=== PATIENT | male | born 1935 | race Caucasian/White ===

== ENCOUNTER 2025-05-19 18:25 | Inpatient (IN) | payer MEDICARE, SELFPAY ==
--- OUTSIDE RECORDS SUMMARY | 2023-06-28 05:42 | XMS_ITS | Continuity of Care Document ---
Author Organization JENNA Larson Address [address] [place] [address] Phone Care Team Providers Care Molding Engineer Name Role Phone RN, RN Unavailable Unavailable Allergies, Adverse Reactions, Alerts Substance Reaction Status Criticality No Known Allergies Active No Inform ation Medications Medication Instructions Dosage Effective Dates (start - stop) Status Comments Lipitor 10 mg tablet take 1 tablet by or al route every day 10 MG - Active aspirin 81 mg chewable tablet chew 1 tablet by oral route every day 81 MG - Active Xarelto 20 mg tablet take 1 tablet by or al route every day with the evening meal 20 MG - Active Tylenol 325 mg capsule take 1 capsule by oral route 3 times every day for 1 month 1 capsule - Active Procedures Procedure Date No Show Visit Fee Inject, Spine, Lumb/sacr, Epi/subarc w/ img Guid Inject, Spine, Lumb/sacr, Epi/subarc w/ img Guid Verified No Separate Anesthesia 023 New Pt Eval Moderate Advance Directives Directive Yes / No Effective Date File Name No Information Encounters Encounter Description Practice Location Reason(s) For Visit Diagnoses Date Provider Providers Copied on Encounter JENNA Larson, [address], [place], [place], [id number], [place] tel:[phone] [facility] No Information JUDIT SPAIN. [address], [place], [place], [id number], [place]. tel:[phone] JENNA Larson, [address], [place], [place], [id number], [place] tel:[phone] [facility] No Information Therese Escobar. [address], [place], [address], [place]. tel:[phone] Referring Provider: REFERRAL FADI, DAYANARA. [facility], [facility], [address], [place], [place], [id number], [place] tel:[phone] [facility] No Information Miles Velazquez. [address], [place], [address], [place]. tel:[phone] Referring Provider: Marcus Aquino, [address], [place], [address]. tel:[phone] [facility], [address], [place], [address], [place] tel:[phone] [facility] back pain (chief complaint) Radiculopathy , lumbar regionRadicul opathy, lumbar region [facility]. [address], [place], [place], [id number], [place]. tel:[phone] Referring Provider: Marcus Aquino, [address], [place], [address]. tel:[phone] [facility], [facility], [address], [place], [place], [id number], [place] tel:[phone] [facility] No Information Miles Velazquez. [address], [place], [address], [place]. tel:[phone] Referring Provider: Marcus Aquino [address], [place], [address]. tel:[phone] New Pt Eval [facility], 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 [address], [place], [id number], [place]. tel:[phone] Referring Provider: Fernando Paz, [address], [place], [address] . tel:[phone] Family History Family Member Type Diagnosis Age At Onset No Information Payers Payer name Insurance type Covered alliance party ID Subhash varghese(s) Medicare Part B [id number] Blue Cross Medicare 16 [id number] Social History Type Description Quantity Date Captured Comments Alcohol Use Details Unknown Caffeine Use Details Unknown Tobacco Use Status No Information Smoking Status No Information Sex Male Chief Complaint And Reason For Visit No Information Reason For Referral Reason For Referral No Information History Of Present Illness Encounter Date Complaint History Of Prese nt Illness back pain Location of pain is lower back. back pain Location of pain is lower back. Pain is radiated to the bilateral legs. The patient describes the pain as shooting. Context: hard fall. Symptoms are aggravated by bending and twisting. Symptoms are relieved by ice and massage. Functional Status Date Functional Assessmen t No Information Instructions Date Instruction Additional Infor nissa -Follow up in clinic to discuss results from today's injection Related to Radiculopathy, lumbar region -Order lumbar MRI an d 4 view X-rays at [facility] in [place]-Request records from [facility]-Order lumbar epidural steroid injection. Once approved, can schedule appointment. If lumbar epidural steroid injection is not possible or doesn't provide relief, proceed with radiofrequency ablation-Follow up with PCP regarding holding blood thinners for injections-Follow up with YENNI after injection to reevaluate plan of care Related to Radiculopathy, lumbar region Giving encouragement to exercise Related to Body mass index [BMI] 27.0-27.9, adult Assessments Type Assessment Date No Information Patient Care Teams Name Effective Dates (start - stop) Status Members No Information
--- NOTE | ~2025-05-19 | CT_ITS ---
EXAMINATION: CTA chest PE protocol DATE: 05/19/2025 20:32 CDT INDICATION: Chest pain and shortness of breath TECHNIQUE: Computed tomographic angiography (CTA) of the chest was performed with 100 mL Omnipaque-350 intravenous contrast. The dose-length product was 355.18 mGy-cm. Maximum intensity projection 3D-reconstructions of the aorta and other arteries were constructed by the technologist on a separate workstation. COMPARISON: Chest x-ray dated 05/19/2025. FINDINGS: Study is technically adequate without evidence for pulmonary embolism. No significant thoracic lymphadenopathy. Heart size normal. No significant pleural or pericardial effusion. There is a 2.9 cm cyst of the right hepatic lobe. There is airspace disease of the lower lobes bilaterally, left greater than right, consistent with pneumonia. Consider aspiration in the appropriate clinical setting. There is diffuse idiopathic skeletal hyperostosis (DISH) of the thoracic spine. There is a right shoulder arthroplasty. IMPRESSION: 1. Bilateral lower lobe airspace disease, compatible with pneumonia. Consider aspiration. Reviewed, dictated and finalized at location O. IMPRESSION: 1. Bilateral lower lobe airspace disease, compatible with pneumonia. Consider a spiration.
--- NOTE | ~2025-05-19 | XR_ITS ---
XR chest 2V 05/19/2025 19:11 Indication: Dyspnea Procedure: 2 view chest Comparison: No prior studies for comparison. Findings: There is left lower lobe airspace disease which may represent atelectasis or developing pneumonia. Heart size normal. Right lung clear. There are healed bilateral rib fractures. No significant effusion or pneumothorax. Impression: 1: Left lower lobe airspace disease may represent atelectasis and/or pneumonia. Reviewed, dictated and finalized at location O. Impression: 1: Left lower lobe airspace disease may represent atelectasis and/or pneumonia.
--- NOTE | ~2025-05-19 | XR_ITS ---
EXAMINATION: XR chest ET placement DATE: 05/20/2025 04:21 INDICATION: Intubation TECHNIQUE: frontal view of the chest was obtained. COMPARISON: Chest radiograph dated 05/20/25 FINDINGS: Endotracheal tube tip 3.8 cm above the naina. Interval increase in airspace opacities in the bilateral mid and lower lung zones. No pleural effusion or pneumothorax. The cardiomediastinal silhouette is normal. Severe left glenohumeral osteoarthritis. Right shoulder arthroplasty. IMPRESSION: 1. Increasing opacities in the bilateral mid and lower lung zones which could represent pulmonary edema or pneumonia. Reviewed, dictated and finalized at location A. IMPRESSION: 1. Increasing opacities in the bilateral mid and lower lung zones which could r epresent pulmonary edema or pneumonia.
--- NOTE | ~2025-05-19 | XR_ITS ---
Examination: XR chest 1V portable Clinical History: increased o2 demands Comparison: 1 day prior Technique: Portable AP Findings: Heart size normal. Worsening bibasilar opacities. No acute bony abnormality. IMPRESSION: 1. Worsening bibasilar atelectasis and/or airspace disease. Reviewed, dictated and finalized at location R.
--- NOTE | 2025-05-19 18:39 | ED.GENADULT ---
HPI - General Adult General Chief complaint: Shortness of Breath/Dyspnea <Nidia Bush December, CORPORATE RECYCLING MANAGER - Last Filed: 05/19/25 18:51> Stated complaint: SOB <Nidia Bush December, CORPORATE RECYCLING MANAGER - Last Filed: 05/19/25 18:51> Time Seen by Provider: 05/19/25 18:40 <Nidia Bush December, CORPORATE RECYCLING MANAGER - Last Filed: 05/19/25 18:51> Focused HPI: Wilfredo Garcia is an 89 y/o male with fever 101.6, SOB and he drove 8 hours today from out of town to be [facility] family. Patient has a hx of PE and is on Eliquis. He states yesterday he felt fine but once he got here he cannot catch his breath. He states he typically gets SOB on exertion and sits down and feels better but today he isn't feeling better with rest. He also states that he is having chest pain mid sternal that started with the chest pain. Denies hx of HI/ no previous cardiac surgery - lives in [place] and a lot of medical records in [place]. GENERAL: Well-appearing, well-nourished, and in no acute distress. HEAD: Normocephalic, atraumatic. CHEST: Clear to auscultation. ?No respiratory distress. HEART: Regular rate and rhythm.? NEURO: ?Alert and oriented x3. Patient screened in triage and initial orders placed.? ?Additional care and disposition to be based upon?diagnostic testing and treatment. <Nidia Bush December, CORPORATE RECYCLING MANAGER - Last Filed: 05/19/25 18:51> History of Present Illness HPI narrative: Agree with the HPI <Dallas Sequeira MD - Last Filed: 05/19/25 22:40> Related Data Allergies/adverse reactions: Allergies Allergy/AdvReac Type Severity Reaction Status Date / Time No Known Allergies Allergy Verified 05/19/25 18:53 <Nidia Bush December, CORPORATE RECYCLING MANAGER - Last Filed: 05/19/25 18:51> Review of Systems Review of Systems: Gen.: Denies fevers or chills Eyes: Denies eye pain or visual change ENT: Denies congestion Respiratory: As per HPI CV: As per HPI GI: Denies abdominal pain nausea, emesis or diarrhea denies burning, urgency, frequency or hematuria Musculoskeletal: Denies back pain or muscle pain Neuro: Denies numbness, tingling, weakness or focal weakness Skin: Denies rash Except as documented, all other systems reviewed and negative <Dallas Sequeira MD - Last Filed: 05/19/25 22:40> Exam Narrative: APPEARANCE: No acute distress, nontoxic, resting in bed EYES: EOMI HEENT: Normocephalic, atraumatic, OMM RESPIRATORY: No respiratory distress Clear to auscultation bilaterally with no rhonchi wheezing or rales. CARDIOVASCULAR: Tachycardic with regular rhythm without murmurs rubs or gallops. ABDOMINAL: Soft, nontender, nondistended, no rebound or guarding MUSCULOSKELETAl: Moves all extremities. No clubbing, cyanosis or edema. NEURO: Awake and alert. Following commands, speech normal, no focal deficits SKIN:: Warm, dry. No rashes lesions or abrasions PSYCHIATRIC: Normal affect/mood, <Dallas Sequeira MD - Last Filed: 05/19/25 22:40> Course Vital Signs Vital signs: Vital Signs Temperature 98.5 F 05/19/25 18:42 Pulse Rate 128 H 05/19/25 18:42 Respiratory Rate 18 05/19/25 18:42 Blood Pressure 97/58 L 05/19/25 18:42 Pulse Oximetry 96 05/19/25 18:42 Oxygen Delivery Room Air 05/19/25 18:42 Temperature 98.4 F 05/19/25 21:42 Pulse Rate 108 H 05/19/25 21:42 Respiratory Rate 18 05/19/25 21:42 Blood Pressure 112/69 05/19/25 21:42 Pulse Oximetry 94 05/19/25 21:42 Oxygen Delivery Room Air 05/19/25 18:42 <Nidia Palma, CORPORATE RECYCLING MANAGER - Last Filed: 05/19/25 18:51> Vital Signs Temperature 98.5 F 05/19/25 18:42 Pulse Rate 128 H 05/19/25 18:42 Respiratory Rate 18 05/19/25 18:42 Blood Pressure 97/58 L 05/19/25 18:42 Pulse Oximetry 96 05/19/25 18:42 Oxygen Delivery Room Air 05/19/25 18:42 Temperature 98.4 F 05/19/25 21:42 Pulse Rate 108 H 05/19/25 21:42 Respiratory Rate 18 05/19/25 21:42 Blood Pressure 112/69 05/19/25 21:42 Pulse Oximetry 94 05/19/25 21:42 Oxygen Delivery Room Air 05/19/25 18:42 <Dallas Sequeira MD - Last Filed: 05/19/25 22:40> Medical Decision Making MDM Narrative Medical decision making narrative: 89-year-old male who presented to the ED for chest pain and shortness of breath. On initial evaluation, patient was in acute distress, afebrile tachycardic to the 120s. Heart and lungs were clear. CBC without significant abnormalities. BNP elevated at 1500. COVID/flu/RSV negative. Troponin elevated at 0.036. CTA chest was obtained which showed no evidence of PEs but did reveal bilateral lower lobe pneumonia. Patient will be given Rocephin and doxycycline. He will require admission for NSTEMI. I discussed case with hospitalist who will admit the patient, does request Cardiology consult regarding possible heparin drip in the setting of Eliquis use. I discussed the case with Dr. Stein, cardiology, recommends holding Eliquis and heparin bolus there is a change in clinical status. I relayed this information to Dr. Hartman, hospitalist. Patient and family are agreeable to this plan. <Dallas Sequeira MD - Last Filed: 05/19/25 22:40> Differential Diagnosis Differential Diagnosis: ACS, PE, failure of outpatient treatment, costochondritis pneumonia viral syndrome <Dallas Sequeira MD - Last Filed: 05/19/25 22:40> Medical Records Medical records reviewed: Yes I reviewed the external patient's medical records. <Dallas Sequeira MD - Last Filed: 05/19/25 22:40> Vital Signs Vital Signs: Vital Signs Temperature 98.5 F 05/19/25 18:42 Pulse Rate 128 H 05/19/25 18:42 Respiratory Rate 18 05/19/25 18:42 Blood Pressure 97/58 L 05/19/25 18:42 Pulse Oximetry 96 05/19/25 18:42 Oxygen Delivery Room Air 05/19/25 18:42 Temperature 98.4 F 05/19/25 21:42 Pulse Rate 108 H 05/19/25 21:42 Respiratory Rate 18 05/19/25 21:42 Blood Pressure 112/69 05/19/25 21:42 Pulse Oximetry 94 05/19/25 21:42 Oxygen Delivery Room Air 05/19/25 18:42 <Nidia Palma APRN - Last Filed: 05/19/25 18:51> Vital Signs Temperature 98.5 F 05/19/25 18:42 Pulse Rate 128 H 05/19/25 18:42 Respiratory Rate 18 05/19/25 18:42 Blood Pressure 97/58 L 05/19/25 18:42 Pulse Oximetry 96 05/19/25 18:42 Oxygen Delivery Room Air 05/19/25 18:42 Temperature 98.4 F 05/19/25 21:42 Pulse Rate 108 H 05/19/25 21:42 Respiratory Rate 18 05/19/25 21:42 Blood Pressure 112/69 05/19/25 21:42 Pulse Oximetry 94 05/19/25 21:42 Oxygen Delivery Room Air 05/19/25 18:42 <Dallas Sequeira MD - Last Filed: 05/19/25 22:40> Lab Data Lab results reviewed: Yes I reviewed the patient's lab results. <Dallas Sequeira MD - Last Filed: 05/19/25 22:40> Result diagrams: 05/19/25 18:57 05/19/25 18:57 <Nidia Palma APRN - Last Filed: 05/19/25 18:51> Labs: Lab Results 05/19/25 05/19/25 Range/Units 18:57 21:40 WBC 9.3 (4.5-10.0) K/mm3 RBC 3.90 L (4.6-6.20) M/mm3 Hgb 13.5 L (14.0-18.0) g/dL Hct 39.9 L (42.0-52.0) % MCV 102.3 H (80-100) fl MCH 34.6 H (26-34) pg MCHC 33.8 (32-36) g/dl RDW 13.2 (11.5-14.5) % Plt Count 168 (150-375) k/mm3 MPV 9.4 (7.4-10.4) fl Immature Gran % (Auto) 0.5 (0-0.5) % Neut % (Auto) 87.1 H (45.5-73.1) % Lymph % (Auto) 7.5 L (18.3-44.2) % [place] % (Auto) 4.7 (2.6-8.5) % Eos % (Auto) 0.1 (0-4.4) % Baso % (Auto) 0.1 L (0.2-1.2) % Lymph # (Auto) 0.70 L (0.9-3.2) K/mm3 [place] # (Auto) 0.4 (0.1-0.6) K/mm3 Eos # (Auto) 0.0 (0-0.3) K/mm3 Baso # (Auto) 0.0 (0.0-0.1) K/mm3 Abs Immat Gran (auto) 0.05 H (0.00-0.031) K/mm3 Absolute Neuts (auto) 8.1 H (1.3-6.7) K/mm3 Absolute Nucleated RBC 0.000 (0.0-0.012) K/mm3 Nucleated RBC % 0.0 (0.0-0.2) % PT 14.8 H (11.1-14.7) Seconds INR 1.2 APTT 53.9 H (22.3-36.8) Seconds Sodium 136 L (137-145) mmol/L Potassium 3.5 (3.4-5.0) mmol/L Chloride 106 (98-107) mmol/L Carbon Dioxide 18 L (22-30) mmol/L Anion Gap 12 (4-12) mmol/L BUN 14 (9-20) mg/dL Creatinine 1.05 (0.7-1.3) mg/dL Estim Creat Clear Calc 43 ml/min Estimated GFR > 60 (59 - ) Glucose 146 H (65-110) mg/dL Calcium 8.8 (8.4-10.2) mg/dL Total Bilirubin 0.8 (0.2-1.3) mg/dL AST 30 (17-59) U/L ALT 18 (6-50) U/L Alkaline Phosphatase 84 (38-126) U/L Troponin I 0.036 H* 0.044 H* D (0.000-0.034) ng/mL NT-Pro-B Natriuret Pep 1550 H (19.9-100) pg/mL Total Protein 7.7 (6.3-8.2) g/dL Albumin 3.9 (3.5-5.1) g/dL Influenza A (RT-PCR) Negative (Negative) Influenza B (RT-PCR) Negative (Negative) RSV (RT-PCR) Negative (Negative) SARS-CoV-2 RNA (RT-PCR) Negative (Negative) <Nidia Palma, CORPORATE RECYCLING MANAGER - Last Filed: 05/19/25 18:51> Lab Results 05/19/25 05/19/25 Range/Units 18:57 21:40 WBC 9.3 (4.5-10.0) K/mm3 RBC 3.90 L (4.6-6.20) M/mm3 Hgb 13.5 L (14.0-18.0) g/dL Hct 39.9 L (42.0-52.0) % MCV 102.3 H (80-100) fl MCH 34.6 H (26-34) pg MCHC 33.8 (32-36) g/dl RDW 13.2 (11.5-14.5) % Plt Count 168 (150-375) k/mm3 MPV 9.4 (7.4-10.4) fl Immature Gran % (Auto) 0.5 (0-0.5) % Neut % (Auto) 87.1 H (45.5-73.1) % Lymph % (Auto) 7.5 L (18.3-44.2) % [place] % (Auto) 4.7 (2.6-8.5) % Eos % (Auto) 0.1 (0-4.4) % Baso % (Auto) 0.1 L (0.2-1.2) % Lymph # (Auto) 0.70 L (0.9-3.2) K/mm3 [place] # (Auto) 0.4 (0.1-0.6) K/mm3 Eos # (Auto) 0.0 (0-0.3) K/mm3 Baso # (Auto) 0.0 (0.0-0.1) K/mm3 Abs Immat Gran (auto) 0.05 H (0.00-0.031) K/mm3 Absolute Neuts (auto) 8.1 H (1.3-6.7) K/mm3 Absolute Nucleated RBC 0.000 (0.0-0.012) K/mm3 Nucleated RBC % 0.0 (0.0-0.2) % PT 14.8 H (11.1-14.7) Seconds INR 1.2 APTT 53.9 H (22.3-36.8) Seconds Sodium 136 L (137-145) mmol/L Potassium 3.5 (3.4-5.0) mmol/L Chloride 106 (98-107) mmol/L Carbon Dioxide 18 L (22-30) mmol/L Anion Gap 12 (4-12) mmol/L BUN 14 (9-20) mg/dL Creatinine 1.05 (0.7-1.3) mg/dL Estim Creat Clear Calc 43 ml/min Estimated GFR > 60 (59 - ) Glucose 146 H (65-110) mg/dL Calcium 8.8 (8.4-10.2) mg/dL Total Bilirubin 0.8 (0.2-1.3) mg/dL AST 30 (17-59) U/L ALT 18 (6-50) U/L Alkaline Phosphatase 84 (38-126) U/L Troponin I 0.036 H* 0.044 H* D (0.000-0.034) ng/mL NT-Pro-B Natriuret Pep 1550 H (19.9-100) pg/mL Total Protein 7.7 (6.3-8.2) g/dL Albumin 3.9 (3.5-5.1) g/dL Influenza A (RT-PCR) Negative (Negative) Influenza B (RT-PCR) Negative (Negative) RSV (RT-PCR) Negative (Negative) SARS-CoV-2 RNA (RT-PCR) Negative (Negative) <Dallas Sequeira MD - Last Filed: 05/19/25 22:40> Imaging Data Attestation: I personally reviewed and interpreted this imaging study as follows: (I reviewed the radiologist's interpretations) <Dallas Sequeira MD - Last Filed: 05/19/25 22:40> Radiologist's impression: Impressions Chest X-Ray 05/19/25 19:14 Impression: 1: Left lower lobe airspace disease may represent atelectasis and/or pneumonia. Chest CTA 05/19/25 20:32 IMPRESSION: 1. Bilateral lower lobe airspace disease, compatible with pneumonia. Consider aspiration. <Dallas Sequeira MD - Last Filed: 05/19/25 22:40> ECG Data EKG #1: ECG completion date: 05/19/25 <Dallas Sequeira MD - Last Filed: 05/19/25 22:40> ECG completion time: 18:52 <Dallas Sequeira MD - Last Filed: 05/19/25 22:40> Interpretation: Sinus tachycardia rate of 125, left axis deviation, low QRS voltage, no acute ST or T-wave changes <Dallas Sequeira MD - Last Filed: 05/19/25 22:40> EKG #2: ECG completion date: 05/19/25 <Dallas Sequeira MD - Last Filed: 05/19/25 22:40> ECG completion time: 21:41 <Dallas Sequeira MD - Last Filed: 05/19/25 22:40> Interpretation: Sinus tachycardia rate of 108, low QRS voltage, ST depression in V4 through V6, no T-wave changes <Dallas Sequeira MD - Last Filed: 05/19/25 22:40> Discharge Plan Discharge Clinical Impression: Acute non-ST elevation myocardial infarction (NSTEMI) Community acquired pneumonia Qualifiers: Laterality: unspecified laterality Qualified Code(s): J18.9 - Pneumonia, unspecified organism <Nidia Palma CORPORATE RECYCLING MANAGER - Last Filed: 05/19/25 18:51> Patient Disposition: Still a Patient <Nidia Palma CORPORATE RECYCLING MANAGER - Last Filed: 05/19/25 18:51> Condition: Stable <Nidia Palma CORPORATE RECYCLING MANAGER - Last Filed: 05/19/25 18:51> Patient Language: [place] <Nidia Palma - Last Filed: 05/19/25 18:51> Follow-up/Referrals: Sam,Wade Bender [Primary Care Provider] <Nidia Palma - Last Filed: 05/19/25 18:51>
[2025-05-19 18:42] VITALS: BP 97/58; PULSE 128; RESP 18; TEMP 36.9; O2SAT 96
--- NOTE | 2025-05-19 18:45 | ECG_ITS ---
Test Date: 2025-05-19 18:52:09 Measurements Intervals [place] Rate: 125 P: 5 AL: 149 QRS: -26 QRSD: 94 T: 16 QT: 336 QTc: 486 Interpretive Statements SINUS TACHYCARDIA BORDERLINE LEFT AXIS DEVIATION [QRS AXIS < -20] LOW QRS VOLTAGE IN EXTREMITY LEADS [QRS DEFLECTION < 0.5 mV IN LIMB LEADS] POOR R-WAVE PROGRESSION ABNORMAL ECG No previous ECG available for comparison Electronically Signed On 05-20-2025 07:26:09 CDT by Cory Matute M.D.
[2025-05-19 19:03] LABS: Hematocrit 39.9 % (42.0-52.0); Hemoglobin 13.5 g/dL (14.0-18.0); Immature Granulocyte Percent A 0.5 % (0-0.5); Lymphocytes Absolute Auto 0.70 K/mm3 (0.9-3.2); Mean Corpuscular HGB Conc 33.8 g/dl (32-36); Mean Corpuscular Hemoglobin 34.6 pg (26-34); Mean Corpuscular Volume 102.3 fl (80-100); Nucleated Red Blood Cells Absolute Auto 0.000 K/mm3 (0.0-0.012); Nucleated Red Blood Cells Perc 0.0 % (0.0-0.2); Platelet Count Result 168 k/mm3 (150-375); Red Blood Count 3.90 M/mm3 (4.6-6.20); White Blood Count 9.3 K/mm3 (4.5-10.0)
[2025-05-19 19:14] LABS: INR 1.2; Prothrombin Time 14.8 Seconds (11.1-14.7)
[2025-05-19 19:15] LABS: Alanine Aminotransferase 18 U/L (6-50); Albumin Level 3.9 g/dL (3.5-5.1); Alkaline Phosphatase 84 U/L (38-126); Anion Gap 12 mmol/L (4-12); Aspartate Amino Transferase 30 U/L (17-59); Bilirubin,Total 0.8 mg/dL (0.2-1.3); Blood Urea Nitrogen 14 mg/dL (9-20); Calcium 8.8 mg/dL (8.4-10.2); Carbon Dioxide 18 mmol/L (22-30); Chloride 106 mmol/L (98-107); Estimated CRCL calculation 43 ml/min; Estimated Glomerular Filt Rate > 60; Glucose 146 mg/dL (65-110); Potassium 3.5 mmol/L (3.4-5.0); Sodium 136 mmol/L (137-145); Total Protein 7.7 g/dL (6.3-8.2)
[2025-05-19 19:16] LABS: Partial Thromboplastin Time 53.9 Seconds (22.3-36.8)
[2025-05-19 19:29] LABS: NT Pro B Type Natriuretic Pept 1550 pg/mL (19.9-100); Troponin I 0.036 ng/mL (0.000-0.034)
[2025-05-19 19:40] LABS: Influenza A QL RT-PCR Negative (Negative); Influenza B QL RT-PCR Negative (Negative); RSV RNA, RT-PCR Negative (Negative); SARS-CoV-2 RNA PCR Negative (Negative)
--- NOTE | 2025-05-19 19:54 | ECG_ITS ---
Test Date: 2025-05-19 21:41:41 Measurements Intervals [place] Rate: 108 P: 38 UT: 156 QRS: -17 QRSD: 91 T: 12 QT: 348 QTc: 467 Interpretive Statements SINUS TACHYCARDIA LOW QRS VOLTAGE IN EXTREMITY LEADS [QRS DEFLECTION < 0.5 mV IN LIMB LEADS] NONSPECIFIC ST SEGMENT ABNORMALITY ABNORMAL ECG Compared to ECG 05/19/2025 18:52:09 NO SIGNIFICANT CHANGE Electronically Signed On 05-20-2025 07:31:04 CDT by Cory Matute M.D.
--- OUTSIDE RECORDS SUMMARY | 2025-05-19 20:03 | XMS_ITS | Referral Summary ---
Author Organization [facility] Care Address [address] [place] [address] Phone Care Team Providers Care Senior Automation Engineer Name Role Phone Joaquim Vargas Primary Care Provider [phone] Source Comments This disclosure is being made pursuant to the Care Everywhere program,applicable federal and state laws, and may not contain all informationavailable regarding this patient.[facility] and [facility] Practices Allergies No known active allergies Medications amoxicillin 500 mg capsule Take 2,000 mg by mouth as needed for Other. Prior to dental work 7 Active cholecalciferol (VITAMIN D3) 2,000 unit tablet Take 2,000 Units by mouth daily. Active multivitamin with minerals tablet Take 1 tablet by mouth daily. Active GLUCOSAM-CHONDRO- HERB 149-HYAL (GLUCOS CHOND CPLX ADVANCED PO) Ac tive flaxseed 1,000 mg cap Active naproxen 250 mg tablet Take 250 mg by mouth as needed. Active atorvastatin 10 mg tablet 0 Active acetaminophen 325 mg tabletIndications :S/P revision of total hip Take 3 tablets (975 mg total) by mouth 3 times daily. 100 tablet 1 Active sennosides 8.6 mg tabletIndications :Drug-induced constipation Take 1-2 tablets (8.6-17.2 mg total) by mouth 2 times daily as needed. 100 tablet 1 Active traMADol 50 mg tabletIndications :For Mild to Moderate Pain Take 1 tablet (50 mg total) by mouth every 6 hours as needed. 40 tablet Active Active Problems Problem Noted Date Diagnosed Date Postoperative anemia due to acute blood loss Overview (10/21/2020): Patient had acute blood loss anemia that was monitored with daily hemoglobin and hematocrit levels, evaluated for signs and symptoms of blood loss, and treated if hemoglobin is less than 7g/dL or hematocrit less than 21g/dL. Stage 3a chronic kidney disease 10/20/2020 Assessment & Plan (10/20/2020 3:47 AM MEDICARE SALES REPRESENTATIVE): Unsure if this is chronic, no outside labs for comparison. Patient reports he has been taking nsaids around the clock for his hip pain. Kidney labs 09/30/20: creatinine-1.2, and eGFR-56. Avoid nephrotoxic meds. Volume and electrolytes appear stable. Monitor closely and consult endocrine if these labs continue to worsen. History of prostate cancer 10/20/2020 Assessment & Plan (10/20/2020 3:50 AM MEDICARE SALES REPRESENTATIVE): Patient reports a history of prostate cancer in which he received chemo 20 years ago. He reports he has been in remission since, and is monitored yearly. Hyperlipidemia 10/18/2020 Assessment & Plan (10/20/2020 3:26 AM MEDICARE SALES REPRESENTATIVE): HLD-continue atorvastatin 10 mg daily. SAUD (obstructive sleep apnea) 10/18/2020 Assessment & Plan (10/20/2020 3:39 AM MEDICARE SALES REPRESENTATIVE): Patient denied sleep apnea, though I noted this in a previous outside note. Caution with narcotics. Recommend close watching for apneas with low threshold for snicu evaluations postop if apneas develop. History of gout 10/18/2020 Assessment & Plan (10/20/2020 3:27 AM MEDICARE SALES REPRESENTATIVE): The patient denies any recent flare-ups. Monitor for s/s of flare-ups. 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 [place] and chromium 6.9/4.1 respectively on 07/30/20 (outside labs in media)-levels continue to increase, so it was recommended that patient have a right hip arthroplasty- scheduled for 10/20/20. 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, right 019 Immunizations Immunization Administration Dates Next Due COVID-19, mRNA 12+ yo (PFIZER) 30mcg/0.3mL 12/09,11/19/2020 Pneumococcal Polysaccharide, PPSV23 (Pneumovax 2 3) 07/21/2003 Tdap 05/15/2011 Zoster, recombinant (Shingrix) 12/23/2020 Social History Tobacco Use Types Packs/Day Years Used Date Smoking Tobacco: Never Smokeless Tobacco: Never Alcohol Use Standard Drinks/Week Comments Yes 0 (1 standard drink = 0.6 oz pur e alcohol) rarely Sex and Gender Information Value Date Recorded Sex Assigned at Not on file Legal Sex Male 9:19 PM CDT Gender Identity Not on file Sexual Orientation Not on file Last Filed Vital Signs Vital Sign Reading Time Taken Comments Blood Pressure 130/81 10/22/2020 7:43 AM MEDICARE SALES REPRESENTATIVE Pulse 98 10/22/2020 7:43 AM MEDICARE SALES REPRESENTATIVE Temperature 36.7 C (98.1 F) 10/22/2020 7:43 AM MEDICARE SALES REPRESENTATIVE Respiratory Rate 16 10/22/2020 7:43 AM MEDICARE SALES REPRESENTATIVE Oxygen Saturation 93% 10/22/2020 7:43 AM MEDICARE SALES REPRESENTATIVE Inhaled Oxygen Concentration - - Weight 88 kg (194 lb) 10/20/2020 4:10 PM MEDICARE SALES REPRESENTATIVE Height 177.8 cm (5' 10) 10/20/2020 4:10 PM MEDICARE SALES REPRESENTATIVE Body Mass Index 27.84 10/20/2020 4:10 PM MEDICARE SALES REPRESENTATIVE Plan of Treatment Not on file Medical Devices Implanted Type Area Machinery Engineer Device Identifier Shelf Expiration Date Model / Serial / Lot Hip Stem Conical [id number] Distal Rest Mod - [id number] Implanted:Qty: 1 on 10/20/2020 by Everton Marie at [facility] Right: Hip [employer]ON 03/14/2025 [id number] / [id number] / [id number] Hip Cone Body 23mm +0mm (Std) Rest Mod - [id number] Implanted:Qty: 1 on 10/20/2020 by Everton Marie at [facility] Right: Hip [employer] 10/01/2022 [id number] / [id number] / [id number] Hip V40 Biolox Delta Fem Head 28mm - [id number] Implanted:Qty: 1 on 10/20/2020 by Everton Marie at [facility] Right: Hip [employer] 07/18/2025 [id number] / [id number] / [id number] Explanted Type Area Machinery Engineer Device Identifier Shelf Expiration Date Model / Serial / Lot Stem, Neck And Head Explanted:Qty: 1 on 10/20/2020 by Everton Marie at [facility] Right: Hip Description:Stem, neck and h ead explanted and discarded per surgeon. Insurance MEDICARE A & B [facility] Advance Directives For more information, please contact: [phone] * Full Code (Latest Code Status on File) Date Activated Date Inactivated Comments 10/20/2020 4:07 PM 10/22/2020 1:37 PM Care Teams Senior Automation Engineer Relationship Specialty Start Date End Date James Vargasith [address] [place] [address] PCP - General Family Practice 06/06/17
--- OUTSIDE RECORDS SUMMARY | 2025-05-19 20:03 | XMS_ITS | Clinical Summary ---
Author Organization [facility], later [facility] Address [address] [place] [address] [address] [place] [address] Care Team Providers Care Internal Audit Senior Manager Name Role Phone Joaquim Vargas MD Primary Care Provider [phone] Provider, No Attributed RESOURCE Unavailable Unavailable Allergies No known active allergies Medications atorvaSTATin (LIPITOR) 10 mg tablet TAKE ONE TABLET BY MOUTH EVERY DAY FOR CHOLESTEROL 3 Active naproxen (NAPROSYN) 500 mg tablet Take 500 mg by mouth 2 times a day as needed For Pain 3 Active omeprazole (PRILOSEC) 20 mg capsule TAKE ONE CAPSULE BY MOUTH EVERY EVENING ON AN EMPTY STOMACH 3 Active omeprazole (PRILOSEC) 40 mg capsule TAKE ONE CAPSULE BY MOUTH EVERY MORNING ON AN EMPTY STOMACH 3 Active traMADol (ULTRAM) 50 mg tablet TAKE ONE TO TWO TABLETS BY MOUTH THREE TIMES A DAY NEEDED FOR PAIN 3 Active Social History Tobacco Use Types Packs/Day Years Used Date Smoking Tobacco: Never Smokeless Tobacco: Never Tobacco Cessation:Counseling Given: Not Answered Sex and Gender Information Value Date Recorded Sex Assigned at Not on file Legal Sex Male 3:52 AM CDT Gender Identity Not on file Sexual Orientation Not on file Last Filed Vital Signs Vital Sign Reading Time Taken Comments Blood Pressure 122/68 12/14/2022 1:06 PM CDT Pulse 88 12/14/2022 1:06 PM CDT Temperature 36.3 C (97.3 F) 12/14/2022 1:06 PM CDT Respiratory Rate 18 12/14/2022 1:06 PM CDT Oxygen Saturation - - Inhaled Oxygen Concentration - - Weight 83.5 kg (184 lb) 12/14/2022 1:06 PM CDT Height 168.3 cm (5' 6.25) 12/14/2022 1:06 PM CD T Body Mass Index 29.47 12/14/2022 1:06 PM CDT Plan of Treatment Health Maintenance Due Date Last Done Comments TDAP/TD VACCINE (1 - Tdap) 1958 Diabetes Screening 1982 Pneumococcal Vaccine 50yr + (1 of 1 - PCV) 1987 Zoster Vaccine (1 of 2) 1987 Advance [employer] Directive document 2002 RSV Vaccine, Adult (1 - 1-do se 75+ series) 2012 Influenza Vaccine (#1) 2025 Hepatitis B Vaccine Aged Out No longe r eligible based on patient's age to complete this topic Care Teams Internal Audit Senior Manager Relationship Specialty Start Date End Date Joaquim Vargas MD [address] [place] [address] PCP - General Family Medicine 12/14/22 Provider, No Attributed, RESOURCE [address] PCP - Attributed Provider 12/19/22
--- OUTSIDE RECORDS SUMMARY | 2025-05-19 20:03 | XMS_ITS | Encounter Summary ---
Author Organization [facility] Care Address [address] [place] [address] Phone Care Team Providers Care Museum Guide Name Role Phone Joaquim Vargas Primary Care Provider [phone] Encounter Details Date Type Department Care Team (Late st Contact Info) Description 07/23/2017 [facility] - Orthopedics - Joint Reconstruction [address] [place] [address] Everton Marie [address] [place], [place] [id number] Social History Tobacco Use Types Packs/Day Years Used Date Smoking Tobacco: Never Smokeless Tobacco: Never Alcohol Use Standard Drinks/Week Comments Yes 0 (1 standard drink = 0.6 oz pur e alcohol) Sex and Gender Information Value Date Recorded Sex Assigned at Not on file Legal Sex Male 9:19 PM CDT Gender Identity Not on file Sexual Orientation Not on file documented as of this encounter Miscellaneous Notes * Telephone Encounter - Alivia Stanton - 07/23/2017 9:42 AM CST Dwayne left a vm stating he had labs drawn on for cobalt and chrome and hasn't heard anything back yet. He can be reached at. [phone] [place] SEASONAL SPECIALIST documented in this encounter Plan of Treatment Not on file documented as of this encounter Visit Diagnoses Not on filedocumented in this encounter Care Teams Museum Guide Relationship Specialty Start Date End Date Joaquim Vargas [address] [place] [address] PCP - General Family Practice 06/06/17 documented as of this encounter
--- OUTSIDE RECORDS SUMMARY | 2025-05-19 20:03 | XMS_ITS | Encounter Summary ---
Author Organization [facility] Care Address [address] [place] [address] Phone Care Team Providers Care Diesel Mechanic Helper Name Role Phone Joaquim Vargas Primary Care Provider [phone] Encounter Details Date Type Department Care Team (Late st Contact Info) Description 03/07/2021 Ancillary Orders [facility] - Orthopedics - Joint Reconstruction [address] [place] [address] Everton Marie [address] [place], [place] [id number] Social History Tobacco Use Types Packs/Day Years [...] on file documented as of this encounter Plan of Treatment Not on file documented as of this encounter Results * EXTERNAL X-RAY HIP - STORE ONLY (03/07/2021 6:41 PM CDT) us Everton Marie RAD EXTERNAL IMAGES Final Re sult [facility] RADIOLOGY ORDERS OUTBOUND [address] [place] [address] documented in this encounter Visit Diagnoses Not on filedocumented in this encounter Additional Health Concerns Assessment Noted Time A fall risk assessment has been complete d for the patient 10/20/2020 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
[2025-05-19] MEDS: ASPIRIN 81 MG CHEWABLE TABLET 324 MG PO (20:14)
[2025-05-19 20:16] VITALS: BP 109/72; PULSE 111; RESP 18; O2SAT 95
[2025-05-19] MEDS: cefTRIAXone 2 GM in SODIUM CHLORIDE 0.9% IV 100 ML 200 ML IVPB (21:11)
[2025-05-19] MEDS: DOXYCYCLINE IV 100 MG in SODIUM CHLORIDE 0.9% IV 100 ML IVPB (21:35)
[2025-05-19 21:42] VITALS: BP 112/69; PULSE 108; RESP 18; TEMP 36.9; O2SAT 94
[2025-05-19 22:11] LABS: Troponin I 0.044 ng/mL (0.000-0.034)
[2025-05-19 23:38] VITALS: BP 117/72; PULSE 113; RESP 18; TEMP 37.2; O2SAT 95
--- NOTE | 2025-05-20 00:28 | ECG_ITS ---
Test Date: 2025-05-20 01:28:06 Measurements Intervals [place] Rate: 104 P: 34 [place]: 149 QRS: -7 QRSD: 89 T: 43 QT: 349 QTc: 460 Interpretive Statements SINUS TACHYCARDIA LOW QRS VOLTAGE IN EXTREMITY LEADS [QRS DEFLECTION < 0.5 mV IN LIMB LEADS] ABNORMAL RHYTHM ECG Compared to ECG 05/19/2025 21:41:41 ST SEGMENT ABNORMALITY IS IMPROVING Electronically Signed On 05-20-2025 07:34:03 CDT by Cory Matute M.D.
[2025-05-20] MEDS: MORPHINE SULFATE (*CRX) 2 MG/ML INJ IV PUSH (00:36)
[2025-05-20 00:39] VITALS: BP 103/77; PULSE 101; RESP 18; TEMP 37.9; O2SAT 97
--- NOTE | 2025-05-20 01:12 | ECG_ITS ---
Test Date: 2025-05-20 03:24:18 Measurements Intervals [place] Rate: 140 P: 206 MN: 145 QRS: 0 QRSD: 97 T: 51 QT: 299 QTc: 458 Interpretive Statements ATRIAL TACHYCARDIA, SUSPECT ATYPICAL ATRIAL FLUTTER LOW QRS VOLTAGE IN EXTREMITY LEADS [QRS DEFLECTION < 0.5 mV IN LIMB LEADS] ABNORMAL RHYTHM ECG Compared to ECG 05/20/2025 01:28:06 SINUS RHYTHM IS REPLACED BY ATRIAL FLUTTER Electronically Signed On 05-20-2025 07:36:50 CDT by Cory Matute M.D.
--- NOTE | 2025-05-20 01:53 | PC.NURSE ---
Pt states that he has CP that is a 9/10. Hospitalist called and morphine ordered. 0015 Pt stated that he decreased CP but it is still a 5/10. Hosptialist contacted and lidocaine patch and tylenol ordered. 0115
[2025-05-20 02:00] VITALS: BMI 27.8
--- NOTE | 2025-05-20 02:00 | PC.NURSE ---
This patient, Wilfredo Garcia, was admitted to Intensive Care Unit-4. Patient/family oriented to hospital policies and general routines including ID bracelet, bed and alarms, visiting hours, pain management, procedures, bathroom and other care routines, personal items, smoking policy, room service/diet, and visiting hours. Information on how to activate the Rapid Response Team has been discussed. Patient/Family are encouraged to report perceived risks to care and to ask questions if they do not understand what they are told or what they should do.
[2025-05-20 02:12] VITALS: BP 90/60; PULSE 105; RESP 17; TEMP 37; O2SAT 96
[2025-05-20 02:15] LABS: Troponin I 0.374 ng/mL (0.000-0.034)
--- NOTE | 2025-05-20 02:57 | PC.NURSE ---
Patient diaphoretic at this time, complaining of increased chest pain, nauseous, and blood pressures 90s/60s. Dr. Hartman called at this time and made aware. Rapid response called @ 0300, upon walking into room patient was having trouble breathing and speaking with a HR of 24. See Rapid Response Sheet. Code Blue called @ 0319. See Code Sheet.
[2025-05-20 03:34] LABS: INR 1.2; Prothrombin Time 15.7 Seconds (11.1-14.7)
[2025-05-20 03:35] LABS: Partial Thromboplastin Time 47.8 Seconds (22.3-36.8)
[2025-05-20] MEDS: ATROPINE SULFATE 1 MG/10 ML SYRINGE IV PUSH (03:40)
[2025-05-20] MEDS: EPINEPHrine INJ 1 MG/10 ML SYRINGE IV PUSH (03:41)
[2025-05-20] MEDS: ETOMIDATE 20 MG/10 ML AMPUL IV PUSH (03:41)
[2025-05-20] MEDS: ROCURONIUM BROMIDE 50 MG/5 ML VIAL 100 MG IV PUSH (03:41)
[2025-05-20] MEDS: fentaNYL CITRATE INJ (*CRX) 100 MCG/2 ML VIAL 50 MCG IV PUSH (03:42)
[2025-05-20] MEDS: PHENYLEPHRINE 1,000 MCG/10 ML SYRINGE 100 MCG IV PUSH (04:10)
--- NOTE | 2025-05-20 05:48 | PM.IMHP ---
H&P: HPI History of Present Illness Date/Time: 05/20/25 05:48 Chief Complaint: Shortness of breath and fever Narrative: 89-year-old male with PMH PE on Eliquis, presents with shortness of breath, fever 101.6. Patient stated he drove 8 hours from out of town visit his family locally. Reports once he arrived in the vicinity he began to become short of breath worse on exertion. If he had a fever and also had chest pain midsternal which was sharp. Denies history of cardiac disease. Initial evaluation revealed sinus tachycardia. Troponin slightly elevated at 0.036. Quad viral screen negative. CTA chest was performed which did not demonstrate PE however did reveal bilateral lower lobe airspace disease compatible with pneumonia. Patient was given ceftriaxone and doxycycline, aspirin. Cardiology consulted from ER, recommended holding Eliquis, and no heparin GTT. EKG did not demonstrate significant ST changes. Sinus tachycardia. Saturating 96% on room air. Review of Systems Review of Systems: All systems reviewed & are unremarkable except as noted in HPI and below (Subjective) [facility] Social History Social History Smoking status: Never smoker Alcohol intake: current Drinks per week: 4 Substance use: never Lack of Transportation: No Lack of Food: Never True Current Housing: I Have Housing Concerned About Future Housing: No Difficulty Paying Gas/Electric Bills: No Difficulty Paying for Meds: No Currently Unemployed: No Education: Master's Degree or Higher Difficulty w/ Childcare or Family Care: No Spiritual care concerns: Yes (Jain) Meds Home Medications and Allergies Home Medications ?Medication ?Instructions ?Recorded ?Confirmed ?Type amitriptyline 10 mg tablet 10 mg PO QHS 05/20/25 05/20/25 History apixaban 5 mg tablet (Eliquis) 5 mg PO Q12H 05/20/25 05/20/25 History atorvastatin 40 mg tablet 40 mg PO QPM 05/20/25 05/20/25 History famotidine 20 mg tablet 20 mg PO BID 05/20/25 05/20/25 History furosemide 40 mg tablet 40 mg PO .COMPLEX 05/20/25 05/20/25 History isosorbide mononitrate 30 mg 30 mg PO DAILY 05/20/25 05/20/25 History tablet,extended release 24 hr metoprolol tartrate 25 mg tablet 25 mg PO Q12H 05/20/25 05/20/25 History nitroglycerin 0.4 mg sublingual 0.4 mg sublingual Q5M 05/20/25 05/20/25 History tablet omeprazole 40 mg capsule,delayed 40 mg PO DAILY 05/20/25 05/20/25 History release potassium chloride 10 mEq 10 meq PO DAILY 05/20/25 05/20/25 History capsule,extended release Allergies Allergy/AdvReac Type Severity Reaction Status Date / Time No Known Allergies Allergy Verified 05/20/25 02:37 Vital Signs Vital Signs - 24 hr 05/19/25 18:42 05/19/25 20:16 05/19/25 21:42 Temperature 98.5 F 98.4 F Pulse Rate 128 H 111 H 108 H Respiratory Rate 18 18 18 Blood Pressure 97/58 L 109/72 112/69 Pulse Oximetry 96 95 94 Oxygen Delivery Room Air 05/19/25 23:38 05/20/25 00:39 05/20/25 02:12 Temperature 98.9 F 100.2 F H 98.6 F Pulse Rate 113 H 101 H 105 H Respiratory Rate 18 18 17 Blood Pressure 117/72 103/77 90/60 L Pulse Oximetry 95 97 96 Oxygen Delivery Exam Const: General: comfortable and no acute distress Eyes: Pupils: Equal, round and reactive pupils present Neck: Neck: supple Resp: Effort & Inspection: normal respiratory effort Other: Rhonchi bilateral lower lobe Cardio: Rate: tachycardic Rhythm: regular rhythm Heart sounds: no murmurs GI: GI Palp: Yes Soft to palpation Other: Mild distension, nontender Neuro: Motor exam (neuro): 5/5 motor strength present throughout Extrem: Other: Trace pitting edema bilateral lower extremities near the ankle H&P: Results Labs Labs: Short CBC 05/19/25 Range/Units 18:57 WBC 9.3 (4.5-10.0) K/mm3 Hgb 13.5 L (14.0-18.0) g/dL Hct 39.9 L (42.0-52.0) % Plt Count 168 (150-375) k/mm3 BMP 05/19/25 18:57 Sodium 136 L Potassium 3.5 Chloride 106 Carbon Dioxide 18 L BUN 14 Creatinine 1.05 Glucose 146 H Calcium 8.8 Cardiac Enzymes 05/19/25 05/19/2505/20/25 Range/Units 18:57 21:40 01:39 Troponin I 0.036 H* 0.044 H* D 0.374 H* D (0.000-0.034) ng/mL Liver Function 05/19/25 Range/Units 18:57 Total Bilirubin 0.8 (0.2-1.3) mg/dL AST 30 (17-59) U/L ALT 18 (6-50) U/L Alkaline Phosphatase 84 (38-126) U/L Albumin 3.9 (3.5-5.1) g/dL Assessment and Plan Assessment and plan (1) Community acquired pneumonia: Qualifiers: Laterality: unspecified laterality Qualified Code(s): J18.9 - Pneumonia, unspecified organism Code(s): J18.9 - Pneumonia, unspecified organism Status: Acute (2) Cardiac arrest: Code(s): I46.9 - Cardiac arrest, cause unspecified Status: Acute Plan 89-year-old male with PMH PE on Eliquis, presents with shortness of breath, fever 101.6. Patient stated he drove 8 hours from out of town to visit his family locally. Reports once he arrived in the vicinity he began to become short of breath worse on exertion. he had a fever and also had chest pain midsternal which was sharp. Denies history of cardiac disease. Initial evaluation revealed sinus tachycardia. Troponin slightly elevated at 0.036. Quad viral screen negative. CTA chest was performed which did not demonstrate PE however did reveal bilateral lower lobe airspace disease compatible with pneumonia. Patient was given ceftriaxone and doxycycline, aspirin. Cardiology consulted from ER, recommended holding Eliquis, and no heparin GTT. EKG did not demonstrate significant ST changes. Sinus tachycardia. Saturating 96% on room air. ----- After sometime in the ER and resting comfortably, the patient reported repeat chest pain which was sharp, then heavy. Worse on inspiration and also reproducible on palpation of his sternum. Nitroglycerin did relieve his pain as well. He then developed bradycardia. Shortly after he entered asystole. After 1 minute of compressions ROSC was achieved. He had cardiac arrest 2 more times after that. Refer to code sheets. Second arrest lasted 3 minutes. His daughter was present during the 2nd and 3rd code. During the 3rd code she asked us to stop resuscitation attempts. Time of 4:21 a.m. Greater than 100 minutes spent on [id number] encounter, coordination with nursing and consultants, discussion with daughter, medical decision making. Hospitalist [facility] Advance Care Plan I have confirmed that the patient's Advanced Care Plan is present, code status is documented, or surrogate decision maker is listed in patient medical record.: Yes Medication Reconciliation I have utilized all available resources to obtain, update and review the patients current medications (includes all prescriptions, OTC, herbals, cannabis, and nutritional supplements).: Yes
--- NOTE | 2025-05-20 06:03 | PM.DDS ---
Discharge Summary Date and Time Date of : 05/20/25 Time of : 04:21 Provider Pronounced By: Provider Name of Provider That Pronounced: Laurel Hartman MD Probable Cause of Probable Cause of : cardiac arrest, pneumonia, hypoxia, NSTEMI Summary Hospital Course: 89-year-old male with PMH PE on Eliquis, presents with shortness of breath, fever 101.6. Patient stated he drove 8 hours from out of town to visit his family locally. Reports once he arrived in the vicinity he began to become short of breath worse on exertion. he had a fever and also had chest pain midsternal which was sharp. Denies history of cardiac disease. Initial evaluation revealed sinus tachycardia. Troponin slightly elevated at 0.036. Quad viral screen negative. CTA chest was performed which did not demonstrate PE however did reveal bilateral lower lobe airspace disease compatible with pneumonia. Patient was given ceftriaxone and doxycycline, aspirin. Cardiology consulted from ER, recommended holding Eliquis, and no heparin GTT. EKG did not demonstrate significant ST changes. Sinus tachycardia. Saturating 96% on room air. ----- After sometime in the ER and resting comfortably, the patient reported repeat chest pain which was sharp, then heavy. Worse on inspiration and also reproducible on palpation of his sternum. Nitroglycerin did relieve his pain as well. He then developed bradycardia. Shortly after he entered asystole. After 1 minute of compressions ROSC was achieved. He had cardiac arrest 2 more times after that. Refer to code sheets. Second arrest lasted 3 minutes. His daughter was present during the 2nd and 3rd code. During the 3rd code she asked us to stop resuscitation attempts. Time of 4:21 a.m. Greater than 100 minutes spent on [id number] encounter, coordination with nursing and consultants, discussion with daughter, medical decision making. Additional Data Confirmation of as documented by pronouncing clinician: Pupillary Reflex, Palpable Pulses, Response to Stimuli, Heart Tones and Breath Sounds Family: at bedside Was code activated?: Yes Provider Requests Autopsy: No Family Requests Autopsy: No Channel Layer Notified: Yes Advance directives: Yes Hospice patient?: No
--- NOTE | 2025-05-20 07:26 | ED.PROCEDURE ---
Procedures Intubation Intubation Date: 05/20/25 Intubation Time: 03:41 Consent: Emergent consent post cardiac arrest A pre-procedural Time-Out was completed immediately before starting the procedure and confirmed: Patient Identification, Site, Procedure, Patient Position and the Availability of Requisite Equipment: Yes Sedative: etomidate Mg given: 20 Paralytic: rocuronium Mg given: 100 Laryngoscope: fiber optic video scope ET tube size: 7.5 Tube secured depth (cm): 24 Tube secured location: lips Tube placement confirmation: visualized tube passing through cords, equal breath sounds bilaterally, no breath sounds over epigastrium and confirmation by capnometry Patient tolerated procedure: well and no complications Intubation complications: hypotension Other Procedures Procedure 1: Other Procedure: Procedure note: Cardiopulmonary resuscitation Indication: Cardiac arrest Narrative: I was called up from the emergency department to evaluated patient as a code blue was called for loss of pulses. Patient was admitted overnight for hypoxemic respiratory failure secondary to pneumonia. Patient received antibiotics in the emergency department. Found to be hypoxic 75% on room air, cardiac arrest was called as patient was pulseless and had agonal respirations and was witnessed by staff. Patient returned with spontaneous circulation after a dose of 1 mg atropine and brief chest compressions. Patient was awake and able to answer questions and follow commands. GCS 15 at this time. Non-rebreather apply given patient's hypoxemia with improvement to 100% on non-rebreather. Blood pressures were soft but did improve with fluid boluses. 2 L resuscitation ordered this time. Received antibiotics already. Patient already had elevated troponins previously and up trending with discussions by hospitalist Dr. Hartman to initiate heparin for ACS enter reach out to the building insulation installer for the catheterization given cardiac arrest with elevated troponins and chest pain. Patient has been stabilized in the medical floor at this time and I transition care to the hospitalist service while he was transferred upstairs to the ICU. Before return to the emergency department I was called again to another code blue well patient had lost pulses on arrival to the ICU. Patient received atropine and epinephrine at this time with return of spontaneous circulation. Blood pressures are soft in the 80 systolic range. Initiation of norepinephrine peripherally for augmentation of blood pressures to allow for safe intubation given patient's altered mental status and respiratory status at this time. Patient had improvement in blood pressures on maximum norepinephrine and fluid boluses. Stable for intubation at this time. Inducted with 20 mg IV etomidate and 100 mg of rocuronium with successful intubation. Post intubation he did sustain some hypotension and then had bradycardic arrest similar to his previous episodes of losing pulses. He was given additional atropine as well as multiple rounds of epinephrine with ongoing CPR. Return of spontaneous circulation after several rounds of CPR as well as IV use of sodium bicarb x2 and calcium chloride x1. Patient's blood pressure sustained in the low 100s and tachycardic pulse at this time. A bedside ultrasound was conducted by myself which visualized no pericardial effusions, some biapical enlargement of his atria but ventricles appear normal in size without any bowing or signs of right ventricular strain. Already had a CT scan done earlier today that showed no PE. Patient care transition at this time back to hospitalist who was present at bedside during all resus efforts and current stabalization in the ICU post arrest. Critical care time: 45 minutes. Exclusively of the separately billed procedures above.
--- NOTE | 2025-06-03 20:32 | PDCODEBLUE ---
Code Blue Note Code Blue Note Time Arrived at Code Blue: 05/20, 3:57 a.m. Initial Rhythm on Arrival: PEA Airway Management: Pt intubated during resuscitation Chest Compressions: In process on arrival to bedside Result of Code Blue: Pt transferred to ICU Cardiac Rhythm Post Code: Asystole Code Blue Summary: 05/20/2025 at 3:19 a.m. patient noted to be bradycardic, received atropine. Achieve normal sinus rhythm. Shortly after patient entered asystole at 3:20 a.m.. Received epinephrine 1 mg and a short round of compressions. ROSC at 3:22 a.m. 05/20/2025 at 3:56 a.m.: Patient entered PEA. Received sodium bicarbonate x2, epinephrine 1 mg x 2. ROSC at 4:00 a.m. with SVT. Patient intubated 05/20/2025 at 4:16 a.m.. Bradycardia, PEA at 4:16 a.m.. At this time patient was already on Levophed for hypotension. Receive epinephrine 1 mg x 2, at 4:21 a.m. daughter at bedside called for cessation.
== END 2025-05-20 04:21 | disposition expired ==
LOC: ANHED 22:40 → ANHIMU 23:40 → ANHICU 05-20 03:52
PROVIDERS: Nurse Practitioner Family; Admitting Provider General Practice; Emergency Provider Student in an Organized Health Care Education/Training Program; PCP Obstetrics & Gynecology Gynecology; Visit Provider General Practice
DX: I21.4 Non-ST elevation (NSTEMI) myocardial infarction (principal); J18.9 Pneumonia, unspecified organism; I46.9 Cardiac arrest, cause unspecified; Z20.822 Contact with and (suspected) exposure to COVID-19; Z86.711 Personal history of pulmonary embolism; Z79.01 Long term (current) use of anticoagulants
CPT/HCPCS: 31500; 36415; 71045; 71046; 71275; 80053; 82948; 83880; 84484; 85025; 85610; 85730; 87637; 92950; 93005; 96365; 99285; A9270; J0168; J0461; J0696; J2270; J2371; J3010; J7030; J7120; Q9967